=== PATIENT | male | born 1970 | race Caucasian/White ===

== ENCOUNTER 2017-11-17 06:44 | Emergency (ER) | payer MEDICAID ==
[~2017-11-17] VITALS: Ht 170.2 cm; Wt 113.4 kg
[2017-11-17 06:46] VITALS: Ht 170.2 cm; Wt 113.4 kg
== END 2017-11-17 09:50 | disposition expired ==
LOC: ED 06:44
DX: I46.9 Cardiac arrest, cause unspecified (principal)